=== PATIENT | male | born 1945 | race Two or more races ===

== ENCOUNTER 2019-02-18 15:02 | Outpatient (CLI) | payer MEDICARE, MEDICAID ==
[~2019-02-18 15:02] MED LIST: ATELVIA35 MG ORAL; ATORVASTATIN CA20 MG ORAL; AVODART0.5 MG ORAL; CITALOPRAM HBR20 M1 ORAL; FLOMAX0.4 MG ORAL; JANUMET 50-1,01 EACH ORAL; LINZESS290 MCG PO; LOVAZA1 GM ORAL; NORCO 10/3251 EA ORAL; OMEPRAZOLE40 M1 ORAL; TRAZODONE HCL100 MG ORAL; UNOBMED
--- NOTE | 2019-02-19 18:00 | Consultation ---
DATE OF CONSULTATION: 02/18/2019 CONSULTING PHYSICIAN: Robles Amaro M.D. HISTORY OF PRESENT ILLNESS: The patient was referred to us for evaluation for colonoscopy. The patient had a colonoscopy about four years ago. At that time, he had five polyps and was told that he needed to come back in three years, but this has already passed. Also, he was found to have iron-deficiency anemia, so he was also referred for endoscopy. PAST MEDICAL HISTORY: 1. History of constipation. 2. History of multiple colonic polyps. 3. H. pylori-negative gastritis. 4. Iron-deficiency anemia. MEDICATIONS: Please see medication reconciliation list. ALLERGIES: No known drug allergies. FAMILY HISTORY: Noncontributory. SOCIAL HISTORY: The patient lives at home with his . There is no history of tobacco, alcohol, or IV drug abuse. PHYSICAL EXAMINATION: VITAL SIGNS: Temperature 97.4, blood pressure 110/66, pulse 95, respirations 20. HEENT: Normocephalic and atraumatic. Sclerae anicteric NECK: Supple. No evidence of obvious lymphadenopathy. CARDIOVASCULAR: Regular rate and rhythm. Plus S1 and S2. No obvious murmur. LUNGS: Clear to auscultation bilaterally. ABDOMEN: Positive bowel sounds. Soft and nontender. No rebound. No guarding. No peritoneal sign. EXTREMITIES: No cyanosis, no clubbing, no edema. ASSESSMENT AND PLAN: 1. Multiple colonic polyps, five polyps more than three years ago. The patient needs repeat colonoscopy. 2. Iron-deficiency anemia. The patient would need to get endoscopy with colonoscopy for evaluation of that. 3. Chronic constipation. At this time, the patient states it was better in the past, Linzess was working for him, but at this time, he did not want to . We will continue to monitor him and add Linzess if needed. I want to thank, Dr. Mo, for this kind referral. Robles Aamro M.D. DR: JONN JOB#: [id number] CC: Nima Mo M.D.
== END 2019-02-18 17:02 | disposition home or self-care (01) ==
LOC: PAN 15:02
DX: K63.5 Polyp of colon (principal); D50.9 Iron deficiency anemia, unspecified; K59.09 Other constipation; Z86.010 Personal history of colon polyps
CPT/HCPCS: 99212

== ENCOUNTER 2019-02-22 09:28 | Day surgery (SDC) | payer MEDICARE, MEDICAID ==
[2019-02-22] VITALS (9 sets, daily range): BP systolic 132–147; BP diastolic 72–84
[~2019-02-22] VITALS: Ht 165.1 cm; Wt 88.5 kg
--- NOTE | 2019-02-22 06:55 | Anethesia Preoperative Eval ---
Anesthesia Pre-op PMH/ROS General Date of Evaluation: Feb 22, 2019 Time of Evaluation: 06:52 Anesthesiologist: horace ASA Score: ASA 4 Mallampati Score Class I : Soft palate, uvula, fauces, pillars visible Class II: Soft palate, uvula, fauces visible Class III: Soft palate, base of uvula visible Class IV: Only hard plate visible Mallampati Classification: Class III Surgeon: enrike Diagnosis: colon polyps, abdominal pain Surgical Procedure: egd/colonoscopy Anesthesia History: none Family History: no anesthesia problems Allergies: Coded Allergies: ASPIRIN (Verified Allergy, Mild, 08/05/15) STOMACH UPSET Medications: see eMAR Patient NPO?: Yes Past Medical History Cardiovascular: Reports: HTN Gastrointestinal/Genitourinary: Reports: GERD, other - constipation, colon polyps, abdominal pain, Neurologic/Psychiatric: Reports: depression/anxiety Endocrine: Reports: DM Musculoskeletal/Integumentary: Reports: OA, DDD, other - osteoporosis Other: obesity Anesthesia Pre-op Phys. Exam Physician Exam Last Vital Signs Date Time Temp Pulse Resp B/P (MAP) Pulse Ox O2 Delivery O2 Flow Rate FiO2 02/22/19 10:35 Room Air 02/22/19 10:22 97.7 75 18 132/73 97 Constitutional: NAD Neurologic: CN 2-12 intact Cardiovascular: RRR Respiratory: CTA Gastrointestinal: S/NT/ND Airway Exam Mallampati Score: Class II MO: limited Neck: flexible TMD: 2fb ROM: limited Anesthesia Pre-op A/P Studies Pre-op Studies: EKG - nsr, rbbb Risk Assessment & Plan Assessment: asa4 Plan: mac Status Change Before Surgery: No Pre-Antibiotics Drug: Laurence El MD Feb 22, 2019 06:55
[~2019-02-22 09:28] MED LIST changes: +Atropine Inj 1mg/10ml Syr IV PRN; +DiphenhydrAMINE 50mg/ml Inj IVP PRN; +Midazolam 2mg/2ml Inj IVP PRN; +fentaNYL 100 mcg/2 mL IV PRN
--- NOTE | 2019-02-22 10:56 | Pre-Procedure Note/Attestation ---
Pre-Procedure Note/Attestation Complete Prior to Procedure Planned Procedure: not applicable Procedure Narrative: esophagogastroduodenoscopy and colonoscopy Indications for Procedure Pre-Operative Diagnosis: screening colon, GERD Attestation I attest that I discussed the nature of the procedure; its benefits; risks and complications; and alternatives (and the risks and benefits of such alternatives ), prior to the procedure, with the patient (or the patient's legal graphic art sales representative). I attest that, if there was a reasonable possibility of needing a blood transfusion, the patient (or the patient's legal graphic art sales representative) was given the [facility] standardized written summary, pursuant to the [place] Blood Safety Act ([place] Health and Safety Code # 1645, as amended). I attest that I re-evaluated the patient just prior to the surgery and that there has been no change in the patient's H&P, except as documented below: Robles Amaro MD Feb 22, 2019 10:56
--- NOTE | 2019-02-22 10:56 | Short Stay Surgery H&P ---
History of Present Illness History of Present Illness Chief Complaint see recent office note HPI Kenyetta Castaneda is a 73 year old male who was admitted on for Polyps, Abdominal Pain Patient History Allergies: Coded Allergies: ASPIRIN (Verified Allergy, Mild, 08/05/15) STOMACH UPSET Medication History Scheduled Atorvastatin Calcium* (Atorvastatin Calcium*), 20 MG ORAL BEDTIME, (Reported) Citalopram Hydrobromide* (Citalopram Hbr*), 20 MG ORAL DAILY, (Reported) Dutasteride (Avodart), 0.5 MG ORAL DAILY, (Reported) Linaclotide (Linzess), 290 MCG PO DAILY, (Reported) [place]-3 Acid Ethyl Esters (Lovaza), 2 GM ORAL BID, (Reported) Omeprazole (Omeprazole), 40 MG ORAL DAILY, (Reported) Risedronate Sodium (Atelvia), 35 MG ORAL QWEEK, (Reported) Sitagliptin Phos/Metformin Hcl (Janumet 50-1,000 Mg Tablet), 1 TAB ORAL TWICE A DAY, (Reported) Tamsulosin HCl (Flomax), 0.4 MG ORAL DAILY, (Reported) Trazodone Hcl* (Desyrel*), 100 MG ORAL BEDTIME, (Reported) Scheduled PRN Hydrocodone/Acetaminophen (Hydrocodon-Acetaminophn 10-325), 1 TAB ORAL Q6H PRN for For Pain, (Reported) Physical Exam Vital Signs Last Vital Signs Date Time Temp Pulse Resp B/P (MAP) Pulse Ox O2 Delivery O2 Flow Rate FiO2 02/22/19 10:35 Room Air 02/22/19 10:22 97.7 75 18 132/73 97 Plan Attestation Are the patient's medical conditions optimized for surgery? Robles Amaro MD Feb 22, 2019 10:56
[2019-02-22] MEDS ORDERED: Lidocaine 1% MPF 10mg/ml 5ml ONE (12:00)
[2019-02-22] MEDS ORDERED: Propofol 200mg/20ml IV ONE (12:00)
--- NOTE | 2019-02-22 12:23 | Endoscopy Procedure Note ---
Endoscopy Procedure Note General Indication for Procedure: screening colon, GERD Procedures Performed: EGD, colonoscopy Operative Findings/Diagnosis: hemorrhoids, gastrits Specimen: yes Pt Tolerated Procedure Well: Yes Estimated Blood Loss: none Anesthesia Anesthesiologist: mark Anesthesia: MAC Inserted Devices Implant(s) used?: No Quality Quality of Bowel Preparation: Fair Did scope reach the cecum?: Yes Was there any complications?: No GI Core Measures 50 yrs or older w/o bx or poly: No 10yrs. F/U recommended: Yes If not recommended, why?: Above average risk 18 years or older w/prev. colo: Yes <3yrs. since last colonoscopy: No Robles Amaro MD Feb 22, 2019 12:23
--- NOTE | 2019-02-22 19:15 | Procedure Note ---
DATE OF PROCEDURE: 02/22/2019 SURGEON: Robles Amaro M.D. PROCEDURE: Upper endoscopy with biopsy and colonoscopy. ANESTHESIA: Per Dr. Laurence Real. INSTRUMENT: Olympus adult flexible upper colonoscope and upper endoscope. INDICATION: Chronic gastroesophageal reflux disease, history of chronic polyp, referral for repeat colonoscopy for followup. REASON FOR PROCEDURE: The procedure, risks, benefits, and possible consequences, including hemorrhage, aspiration, perforation and infection, and alternative treatments, were explained to the patient/legal guardian by Dr. Robles Amaro and the patient/legal guardian understood and accepted these risks. PROCEDURE IN DETAIL: After informed consent was obtained and the patient was adequately sedated, Olympus upper endoscope was advanced from mouth into the second portion of the duodenum and retroflexion was performed in the stomach. The patient had evidence of diffuse gastritis. Random biopsy from antrum was obtained to rule out H. pylori infection. There was no evidence of any obvious esophagitis or esophageal mass. At this time, the upper endoscope was retrieved and the patient was turned over for colonoscopy. First, rectal exam was performed, which was normal. Then, the scope was advanced from the rectum into the cecum documented by appendiceal orifice, ileocecal valve, and right upper quadrant palpation. Quality of prep was fair. Examination of cecum and some part of the left colon was limited given this prep. The patient had no obvious mass, polyp, diverticula, or any other pathology seen. Retroflexion of rectum showed evidence of medium-sized nonbleeding internal hemorrhoids. SUMMARY OF FINDINGS: 1. Gastritis, status post biopsy. 2. Fair colonic prep. 3. Internal hemorrhoids. RECOMMENDATIONS: Follow up pathology and treat accordingly. Robles Amaro M.D. DR: LESVIA JOB#: [id number] CC:
--- NOTE | 2019-02-22 21:52 | Immediate Post-Op Evaluation ---
Immediate Post-Op Evalulation Immediate Post-Op Evalulation Procedure: egd/colonoscopy/bx Date of Evaluation: Feb 22, 2019 Time of Evaluation: 12:44 IV Fluids: 750ml 0.9ns Blood Products: none Estimated Blood Loss: negligible Blood Pressure Systolic: 135 Blood Pressure Diastolic: 81 Pulse Rate: 71 Respiratory Rate: 18 O2 Sat by Pulse Oximetry: 98 Temperature (Fahrenheit): 97.0 Pain Score (1-10): 0 Nausea: No Vomiting: No Complications none Patient Status: awake, reacts, patent Hydration Status: adequate Drug: Laurence El MD Feb 22, 2019 21:52
--- NOTE | 2019-02-22 21:54 | 48 Hour Post Anesthesia Eval ---
Post Anesthesia Evaluation Procedure: egd/colonoscopy/bx Date of Evaluation: Feb 22, 2019 Time of Evaluation: 12:46 Blood Pressure Systolic: 141 0: 75 Pulse Rate: 71 Respiratory Rate: 18 Temperature (Fahrenheit): 97.0 O2 Sat by Pulse Oximetry: 99 Airway: patent Nausea: No Vomiting: No Pain Intensity: 0 Hydration Status: adequate Cardiopulmonary Status: stable Mental Status/LOC: patient returned to baseline Post-Anesthesia Complications: none Laurence Heath MD Feb 22, 2019 21:54
== END 2019-02-22 13:25 | disposition home or self-care (01) ==
LOC: GAS 09:28
DX: K21.9 Gastro-esophageal reflux disease without esophagitis (principal); K29.50 Unspecified chronic gastritis without bleeding; K64.8 Other hemorrhoids; Z86.010 Personal history of colon polyps; Z88.6 Allergy status to analgesic agent; Z79.899 Other long term (current) drug therapy
CPT/HCPCS: 43239; 45378; 82962; 93005; J2704; 94003; 94150